=== PATIENT | male | born 1950 | race Caucasian/White ===

== ENCOUNTER → 2020-02-01 11:12 | Outpatient (BNVA) | payer MEDICARE, SELFPAY | PROVIDERS: PCP Internal Medicine; Visit Provider Urology | DX: Z76.89 Persons encountering health services in other specified circumstances (principal) | CPT/HCPCS: 99202 ==

== ENCOUNTER → 2020-02-29 10:55 | Outpatient (BNVA) | payer MEDICARE, SELFPAY | PROVIDERS: PCP Internal Medicine; Visit Provider Urology | DX: N39.0 Urinary tract infection, site not specified (principal) | CPT/HCPCS: 81002; 99212 ==

== ENCOUNTER 2020-07-30 15:36 | Outpatient (REF) | payer MEDICARE, SELFPAY ==
[2020-07-30 16:51] LABS: Glucose Urine UA NEG (NEG); Leukocyte Esterase Urine TRACE (NEG); Nitrite Urine NEG (NEG); Specific Gravity - Urine 1.015 (1.005-1.025); Urine Blood TRACE (NEG); Urine Ketones NEG (NEG); Urine Protein NEG (NEG-TRACE)
[2020-07-30 16:52] LABS: Appearance Urine CLEAR; Color Urine YELLOW
[2020-07-30 17:08] LABS: RBC Urine 0-2 /HPF (0); WBC Urine 0-2 /HPF (0-4)
== END 2020-07-30 15:37 | disposition home or self-care (01) ==
LOC: HO.LAB 15:36
PROVIDERS: PCP Internal Medicine; Visit Provider Urology
DX: N39.0 Urinary tract infection, site not specified (principal)
CPT/HCPCS: 81001; 87086

== ENCOUNTER → 2020-08-29 10:20 | Outpatient (BNVA) | payer MEDICARE, SELFPAY | PROVIDERS: PCP Internal Medicine; Visit Provider Urology | DX: N40.1 Benign prostatic hyperplasia with lower urinary tract symptoms (principal); R39.12 Poor urinary stream; N13.8 Other obstructive and reflux uropathy; R31.0 Gross hematuria | CPT/HCPCS: 51798; 99212 ==

== ENCOUNTER → 2020-10-04 13:58 | Outpatient (BNVA) | payer MEDICARE, SELFPAY | PROVIDERS: PCP Internal Medicine; Visit Provider Urology | DX: N40.1 Benign prostatic hyperplasia with lower urinary tract symptoms (principal); N13.8 Other obstructive and reflux uropathy; N39.0 Urinary tract infection, site not specified | CPT/HCPCS: 52000; 99212 ==

== ENCOUNTER 2020-11-25 10:06 | Day surgery (SDC) | payer MEDICARE, SELFPAY ==
[2020-11-15 13:58] VITALS: BMI 26.2
[2020-11-25] VITALS (8 sets, daily range): BP systolic 102–150; BP diastolic 54–84; PULSE 63–80; RESP 12–18; TEMP 36.2–37; O2SAT 95–99
--- NOTE | 2020-11-25 10:41 | HO.ANESPROP2 ---
[facility] Active Problems Active Problems: All Active Problems (Updated 11/15/20 @ 13:41 by Fiorella Prabhakar) BPH w urinary obs/LUTS (Acute) Weak urinary stream (Acute) Complicated urinary tract infection (Acute) Gross hematuria (Acute) Past Medical History Medical History Arthritis Back pain BPH loc w urin obs/LUTS COVID-19 vaccine series completed Elevated cholesterol GERD (gastroesophageal reflux disease) HTN (hypertension) Weak urinary stream Functional capacity: independent ambulation Family History Family history of problems with anesthesia: No Surgical History Surgical History History of right inguinal hernia repair History of Problems with Anesthesia: No Social History Social History Are you a primary healthcare technician to a significant other at home: No Do you presently have visiting nurse or other home services: No Patient Tobacco Use Status: Never used Tobacco Second Hand Smoke Exposure: No Use of substances other than those prescribed or required for medical reasons: No Have you been hit, kicked, punched, or otherwise hurt by someone within the past year? If so, by whom?: No Are you DNR?: No Advance Directives: No Advance Directives Information Provided: No Advance Directives on File: No Recently lost weight without trying: No Eating poorly because of decreased appetite: No Nutrition Risks: No Nutritional Risk Meds Allergies Allergy/AdvReac Type Severity Reaction Status Date / Time No Known Allergies Allergy Verified 11/15/20 13:41 Active Medications: Current Medications Generic Name Dose Route Start Last Admin Trade Name Raciel PRN Reason Stop Dose Admin Lactated Ringer's 1,000 mls @ 50 mls/hr 11/25/20 11:00 Lr IVCONT .Q20H [facility] Home Medications Medication Instructions Recorded Confirmed Last Taken Type atorvastatin 20 mg tablet 20 mg PO DAILY 02/01/20 11/15/20 Unknown History coenzyme Q10 100 mg capsule 200 mg PO DAILY 02/01/20 11/15/20 Unknown History (CoQ-10) echinacea 500 mg capsule 500 mg PO BID 02/01/20 11/15/20 Unknown History lactobacillus combination no.9 4 4,000 mmu cells PO DAILY 02/01/20 11/15/20 Unknown History billion cell capsule (Adult 50 Plus Probiotic) lisinopril 10 mg tablet 10 mg PO DAILY 02/01/20 11/15/20 Unknown History loratadine 10 mg tablet (Claritin) 10 mg PO DAILY 02/01/20 11/15/20 Unknown History multivitamin with minerals (Jayme 1 tab PO DAILY 02/01/20 11/15/20 Unknown History Multiple/Chelated Mineral) omega-3 fatty acids 1,000 mg 1,000 mg PO DAILY 02/01/20 11/15/20 Unknown History capsule (Fish Oil Concentrate) omeprazole 20 mg capsule,delayed 20 mg PO DAILY 02/01/20 11/15/20 11/25/20 History release aspirin 81 mg tablet,delayed 81 mg PO DAILY 11/15/20 11/15/20 11/18/20 History release ibuprofen 200 mg capsule (Motrin 400 mg PO Q8H PRN 11/15/20 11/15/20 Unknown History IB) Exam Exam Date and Time: November 25, 2020 1041 Height,Weight and Vital Signs: Height 5 ft 9 in Weight 80.739 kg Last Vital Signs Temp 98.6 F 11/25/20 10:16 Pulse 79 11/25/20 10:16 Resp 18 11/25/20 10:16 BP 150/77 H 11/25/20 10:16 Pulse Ox 98 11/25/20 10:16 Airway TM Dist: >3cm Neck ROM: Full Heart: RRR Lungs: CTA Assessment and Plan Final Anesthetic Review Family History of Problems with Anesthesia: No History of Problems with Anesthesia: No
[2020-11-25] MEDS: Lactated Ringers 1,000 ML 50 ML IVCONT (10:46)
--- NOTE | 2020-11-25 11:56 | MHC.SHP ---
Pre-Procedural Eval Section A Date of Service: 11/25/20 Section B Chief Complaint: prostatic hyperplasia Details of Present Illness: bph Relevant Family History (Specify if Yes): No Present Medications: see Short Stay Collaborative assessment Medical History: No relevant PMH History of Previous Operations: No relevant previous surgery Allergies: Allergies Allergy/AdvReac Type Severity Reaction Status Date / Time No Known Allergies Allergy Verified 11/15/20 13:41 Review of Systems Sugical H&P ROS: Negative: Constitution, Cardiovascular, Respiratory, Neurological, Psychiatric, Hem-Onc, Allergic/Immunologic, Gastrointestinal, Genitourinary, Musculoskeletal, Integumentary, Endocrine and Eyes/Ears/Nose/Throat Exam Surgical H&P Exam: Normal: HEENT, Normal: Heart, Normal: Lungs, Normal: Extremities, Normal: Abdomen, Normal: Skin and Normal: Neurological Plan Diagnosis/Plan: Unchanged (green light laser prostatectomy) I have reviewed the history and physical and performed a pertinent physical examination on my patient. No changes have occurred unless specified.
[2020-11-25] MEDS: levoFLOXacin/D5W 500 MG/100 ML PIGGYBACK 100 MG IV (11:59)
--- NOTE | 2020-11-25 13:17 | P.OP_ITS ---
Operative Note Operative Note Date of Service: 11/25/20 Narrative: PreOperative Diagnosis: Bladder outlet obstruction Post Operative Diagnosis: Bladder outlet obstruction Procedure: GreenLight laser enucleation of the prostate Surgeon: Dr Jf Mercedes Anesthesia: General Indications for procedure: History of bladder outlet obstruction. Treated with alpha-fco and other medications. Still with symptoms. On cystoscopy in office has prostate polyp and mucus. Recommendation for prostate procedure with laser enucleation of prostate. It has been discussed. Focus was placed on development of retrograde examination which is a normal part of this procedure. Procedure: After informed consent was verified the patient was brought to the operating room and placed in a supine position. Anesthesia was administered per protocol. Patient was placed in modified dorsal lithotomy position and prepped and draped in a sterile fashion. Safety pause time-out was confirmed. Antibiotics have been given. Twenty-four [place] laser cystoscope was inserted per urethra. No abnormalities found the anterior posterior urethra. The bladder was filled on both ureteric orifices were seen in normal position away from our area of interest. Mucous prominent at the Alek. Small calcifications running in mucus along prostate grooves. Appearance consistent with chronic inflammation. Using a GreenLight laser settings of 80 w incisions were made at the 5 and 7 o'clock position. They were taken down and then laterally on each side. They were brought from the bladder neck down to the level of the veru. These defined the lateral aspects of the median lobe area. The median lobe was ablated and enucleated tissue removed. Particularly on the right-hand side of the median lobe mucus was expressed from tissue. This was part of the prostate specimen that is sent for analysis. Bladder itself was normal. Once the median lobe area had been cleaned attention was directed to the lateral lobes. We started with the patient's left lateral lobe. Firstly the 05:00 o'clock groove was further developed. This was moved in the lateral position to undermine the tissue on the lateral side. Focus was then placed on the laser at the 1 o'clock position in developing a secondary groove down to the level of bladder fibers. The intervening tissue between these 2 grooves was removed with a combination of enucleation ablation working from the apex toward the bladder neck. A similar procedure was repeated on the patient's right-hand side. When this was completed debris and pieces of prostate removed from the bladder. Both ureteric orifices were reviewed again in shown to be patent in away from any areas of energy damage. The apical area was reviewed in any stray ooze was controlled. A 22 [place] 30 cc balloon Torres catheter was placed over stylet into the bladder. Clear efflux was obtained. 30 cc was placed in the balloon and gentle traction was placed. A snap was used to hold tension once the patient will be moved and transported. Once transportation its finish this novel be removed. A belladonna and opiate suppository was placed for postprocedure pain management. He tolerated procedure well was extubated in the operating and transferred in a stable condition to the recovery area. Eighty-six thousand kilojoules Prostate examination at completion of the procedure showed marked bogginess. This is again consistent with chronic inflammation of prostate and the mucinous material that was expressed from the prostate tissue through the procedure. Pathology: Prostate tissue Drains: Torres catheter
[2020-11-25] MEDS: Acetaminophen 325 MG TABLET 650 MG PO (14:37)
[2020-11-25] MEDS: oxyCODONE HCl Immed Release 5 MG TABLET PO (14:38)
--- NOTE | 2021-01-30 13:31 | W.PM.OPN ---
Operative Note Operative Note Date of Service: 11/25/20 Narrative: PreOperative Diagnosis: Bladder outlet obstruction Post Operative Diagnosis: Bladder outlet obstruction Procedure: GreenLight laser enucleation of the prostate Surgeon: Dr Jf Mercedes Anesthesia: General Indications for procedure: History of bladder outlet obstruction. Treated with alpha-fco and other medications. Still with symptoms. On cystoscopy in office has trilobar hypertrophy with mucus from lateral lobes prostate. Recommendation for GreenLight laser prostate procedure. Risks and benefits including infection, urinary incontinence were discussed. Retrograde ejaculation was stressed. Procedure: After informed consent was verified the patient was brought to the operating room and placed in a supine position. Anesthesia was administered per protocol. Patient was placed in modified dorsal lithotomy position and prepped and draped in a sterile fashion. Safety pause time-out was confirmed. Antibiotics have been given. Twenty-four [place] laser cystoscope was inserted per urethra. No abnormalities found the anterior posterior urethra. The bladder was filled on both ureteric orifices were seen in normal position away from our area of interest. Using a GreenLight laser settings of 80 w incisions were made at the 5 and 7 o'clock position. They were taken down and then laterally on each side. They were brought from the bladder neck down to the level of the veru. These defined the lateral aspects of the median lobe area. The median lobe was ablated and enucleated tissue removed. Once the median lobe area had been cleaned attention was directed to the lateral lobes. We started with the patient's left lateral lobe. Firstly the 05:00 o'clock groove was further developed. This was moved in the lateral position to undermine the tissue on the lateral side. Focus was then placed on the laser at the 1 o'clock position in developing a secondary groove down to the level of bladder fibers. The intervening tissue between these 2 grooves was removed with a combination of enucleation ablation working from the apex toward the bladder neck. A similar procedure was repeated on the patient's right-hand side. Of note during the laser procedure there was a large amount of mucus that was released from the lateral lobes during the laser ablation. Mucous appeared to be coming from with central component of the prostate. When this was completed debris and pieces of prostate removed from the bladder. Both ureteric orifices were reviewed again in shown to be patent in away from any areas of energy damage. The apical area was reviewed in any stray ooze was controlled. A 22 [place] 30 cc balloon Torres catheter was placed over stylet into the bladder. Clear efflux was obtained. 30 cc was placed in the balloon and gentle traction was placed. A snap was used to hold tension once the patient will be moved and transported. Once transportation its finish this novel be removed. A belladonna and opiate suppository was placed for postprocedure pain management. He tolerated procedure well was extubated in the operating and transferred in a stable condition to the recovery area. Total energy used 125 kilojoules Pathology: Prostate tissue Drains: Torres catheter
== END 2020-11-25 13:35 | disposition home or self-care (01) ==
PROVIDERS: PCP Internal Medicine; Visit Provider Urology
PROC: (CPT 52648; principal; 2020-11-25 12:00)
DX: D29.1 Benign neoplasm of prostate (principal); N42.32 Atypical small acinar proliferation of prostate; N13.8 Other obstructive and reflux uropathy
CPT/HCPCS: 52649; 88305; 88341; 88342; 88344; J1100; J1956; J2250; J2405; J3010

== ENCOUNTER → 2020-11-28 12:41 | Outpatient (BNVA) | payer MEDICARE, SELFPAY | PROVIDERS: Visit Provider Urology | DX: N40.1 Benign prostatic hyperplasia with lower urinary tract symptoms (principal); N13.8 Other obstructive and reflux uropathy; N39.0 Urinary tract infection, site not specified; I10 Essential (primary) hypertension; Z46.6 Encounter for fitting and adjustment of urinary device | CPT/HCPCS: 51700; 51798; 99212 ==

== ENCOUNTER 2020-12-09 13:53 | Outpatient (REF) | payer MEDICARE, SELFPAY ==
[2020-12-09 14:54] LABS: Blood Urea Nitrogen 21 mg/dL (9-16); Estimated Glomerular Filt Rate > 60
== END 2020-12-09 13:54 | disposition home or self-care (01) ==
LOC: HO.LAB 13:53
PROVIDERS: PCP Physician Assistant Medical; Visit Provider Urology
DX: R39.15 Urgency of urination (principal)
CPT/HCPCS: 36415; 82565; 84520

== ENCOUNTER 2020-12-20 10:54 | Outpatient (REF) | payer MEDICARE, SELFPAY ==
--- NOTE | ~2020-12-20 | CT_ITS ---
EXAMINATION: CT ABDOMEN AND PELVIS WITHOUT AND WITH CONTRAST CLINICAL INFORMATION: Malignant neoplasm of the bladder COMPARISON: None TECHNIQUE: Multidetector volumetric imaging was performed of the abdomen and pelvis before and after the IV administration of 85 mL of Omnipaque 300 intravenous contrast. Sagittal and coronal reformatted images were obtained on the technologist's workstation. This CT examination was performed using dose optimization techniques as appropriate, variously including the following: *Automated exposure control *Adjustment of mA and/or kV according to patient size (this includes techniques or standardized protocols for targeted exams where dose is matched to indication/reason for exam; i.e. extremities or head) *Use of iterative reconstruction technique DLP: 660 mGy-cm FINDINGS: LUNG BASES: The visualized lung bases are unremarkable. LIVER, GALLBLADDER, AND BILIARY TREE: The liver is normal in size, shape, and attenuation. No focal hepatic lesion or biliary ductal dilatation is present. There is a 1 mm hyperdensity along the wall the fundus of the gallbladder image 24/94 and 25/228 which may represent a tiny gallstone or calcified polyp. PANCREAS: No pancreatic mass or peripancreatic inflammatory changes. There are pancreatic calcifications suggesting sequelae of chronic pancreatitis. SPLEEN: Unremarkable ADRENAL GLANDS: Unremarkable KIDNEYS AND URETERS: Numerous left renal calculi are seen including an 8 mm left upper pole calculus, a 7 mm calculus in the left mid kidney and a cluster of several left lower pole calculi the largest 10 mm in diameter. Stone to skin distance approximately 8-9 cm. No hydronephrosis. A few small right renal calculi are seen including a 2 mm right mid-upper renal calculus and a punctate 1 mm right lower pole calculus. No hydronephrosis. Symmetric bilateral enhancement. No solid renal mass. No hydroureter. BLADDER: There is mild bladder wall irregularity but no discrete focal mass seen. No calculi are present. GASTROINTESTINAL TRACT: The stomach and small bowel are nondilated. Normal appendix. Tortuous colon with diverticulosis but no evidence of colitis or diverticulitis. There is wall thickening of the sigmoid colon most likely due to muscular hypertrophy with no pericolonic fluid or fat stranding. ABDOMINAL WALL: Fat-containing left inguinal hernia. There is a fat-containing umbilical hernia. LYMPH NODES: No retroperitoneal or iliac lymphadenopathy. VASCULAR: Normal caliber aorta. The IVC enhances normally. PELVIC VISCERA: There is a TURP defect in the prostate. Extensive prostatic calcifications are present. OSSEOUS STRUCTURES: Multilevel degenerative changes. 9 x 11 mm sclerotic lesion in the right aspect of L2 with serrated margins, favoring a bone island over sclerotic malignancy. CT/CT abdomen pelvis wo/w con IMPRESSION: 9 x 11 mm sclerotic lesion in L2 with serrated margins, favoring a bone island over a sclerotic metastasis. If there is high clinical concern, a bone scan or MRI could be obtained. There is subtle bladder wall irregularity but no focal mass seen. Consider correlation with cystoscopy as clinically indicated. There is a TURP defect in the bladder. No retroperitoneal or pelvic lymphadenopathy.
[2020-12-20] MEDS: iohexoL 350 MG/ML 100 ML INFUS..BTL IV (12:13)
== END 2020-12-20 10:55 | disposition home or self-care (01) ==
LOC: HO.CT 10:54
PROVIDERS: Visit Provider Urology
DX: C67.9 Malignant neoplasm of bladder, unspecified (principal)
CPT/HCPCS: 74178; Q9967

== ENCOUNTER → 2020-12-26 15:04 | Outpatient (BNVA) | payer MEDICARE, SELFPAY | PROVIDERS: PCP Physician Assistant Medical; Visit Provider Urology | DX: C67.9 Malignant neoplasm of bladder, unspecified (principal) | CPT/HCPCS: Q3014 ==

== ENCOUNTER 2021-01-30 11:41 | Outpatient (REF) | payer MEDICARE, SELFPAY ==
[2021-01-30 16:43] LABS: Urine Cytology See Pathology rpt
== END 2021-01-30 11:42 | disposition home or self-care (01) ==
LOC: HO.LAB 11:41
PROVIDERS: PCP Physician Assistant Medical; Visit Provider Urology
DX: C67.9 Malignant neoplasm of bladder, unspecified (principal)
CPT/HCPCS: 51798; 88112; 99212

== ENCOUNTER 2021-02-18 11:46 | Day surgery (SDC) | payer MEDICARE, SELFPAY ==
[2021-02-11 13:26] VITALS: BMI 26.2
--- NOTE | 2021-02-17 12:50 | HO.ANESPROP2 ---
Documented by User: Marlen Sanchez NP 02/17/21 12:51 HPI - Anesthesia Eval Consult details Narrative: 70yo M for Colonoscopy PMFSH Active Problems Active Problems: All Active Problems (Updated 02/11/21 @ 13:25 by Marilou Romero RN) BPH w urinary obs/LUTS (Acute) Weak urinary stream (Acute) Complicated urinary tract infection (Acute) Gross hematuria (Acute) Bladder cancer (Acute) Past Medical History Medical History (Updated 02/11/21 @ 13:25 by Marilou Romero RN) Arthritis Back pain Bladder cancer BPH loc w urin obs/LUTS COVID-19 vaccine series completed Elevated cholesterol GERD (gastroesophageal reflux disease) HTN (hypertension) Weak urinary stream Family History Family history of problems with anesthesia: No Surgical History Surgical History (Updated 02/11/21 @ 13:25 by Marilou Romero RN) H/O colonoscopy History of prostate surgery History of right inguinal hernia repair History of Problems with Anesthesia: No Social History Social History Are you a primary certified caregiver to a significant other at home: No Do you presently have visiting nurse or other home services: No Patient Tobacco Use Status: Never used Tobacco Second Hand Smoke Exposure: No Use of substances other than those prescribed or required for medical reasons: No Have you been hit, kicked, punched, or otherwise hurt by someone within the past year? If so, by whom?: No Are you DNR?: No Advance Directives: No Advance Directives Information Provided: Yes (informational brochure mailed) Advance Directives on File: No Recently lost weight without trying: No Eating poorly because of decreased appetite: No Nutrition Risks: No Nutritional Risk Poor oral hygiene: No Meds Allergies Allergy/AdvReac Type Severity Reaction Status Date / Time No Known Allergies Allergy Verified 01/30/21 12:18 Home Medications Medication Instructions Recorded Confirmed Last Taken Type atorvastatin 20 mg tablet 20 mg PO DAILY 02/01/20 02/11/21 Unknown History coenzyme Q10 100 mg capsule 200 mg PO DAILY 02/01/20 02/11/21 Unknown History (CoQ-10) echinacea 500 mg capsule 500 mg PO BID 02/01/20 02/11/21 Unknown History lactobacillus combination no.9 4 4,000 mmu cells PO DAILY 02/01/20 02/11/21 Unknown History billion cell capsule (Adult 50 Plus Probiotic) lisinopril 10 mg tablet 10 mg PO DAILY 02/01/20 02/11/21 Unknown History loratadine 10 mg tablet (Claritin) 10 mg PO DAILY 02/01/20 02/11/21 Unknown History multivitamin with minerals (Jayme 1 tab PO DAILY 02/01/20 02/11/21 Unknown History Multiple/Chelated Mineral) omega-3 fatty acids 1,000 mg 1,000 mg PO DAILY 02/01/20 02/11/21 Unknown History capsule (Fish Oil Concentrate) omeprazole 20 mg capsule,delayed 20 mg PO DAILY 02/01/20 02/11/21 02/18/21 History release aspirin 81 mg tablet,delayed 81 mg PO DAILY 11/15/20 02/11/21 11/18/20 History release ibuprofen 200 mg capsule (Motrin 400 mg PO Q8H PRN 11/15/20 02/11/21 Unknown History IB) Exam Exam Date and Time: February 17, 2021 1250 Height,Weight and Vital Signs: Height 5 ft 9 in Weight 80.739 kg Pertinent Lab Results Pertinent Lab Results: Laboratory Tests 12/09/20 14:05 BUN 21 H Creatinine 1.04 Assessment and Plan Assessment Anesthesia Assessment: Chart Reviewed Final Anesthetic Review Family History of Problems with Anesthesia: No History of Problems with Anesthesia: No Documented by User: Kellen Andrade MD 02/18/21 12:23 PMFSH Past Medical History Medical History (Updated 02/11/21 @ 13:25 by Marilou Romero RN) Arthritis Back pain Bladder cancer BPH loc w urin obs/LUTS COVID-19 vaccine series completed Elevated cholesterol GERD (gastroesophageal reflux disease) HTN (hypertension) Weak urinary stream Surgical History Surgical History (Updated 02/11/21 @ 13:25 by Marilou Romero RN) H/O colonoscopy History of prostate surgery History of right inguinal hernia repair Social History Social History Are you a primary certified caregiver to a significant other at home: No Do you presently have visiting nurse or other home services: No Patient Tobacco Use Status: Never used Tobacco Second Hand Smoke Exposure: No Use of substances other than those prescribed or required for medical reasons: No Have you been hit, kicked, punched, or otherwise hurt by someone within the past year? If so, by whom?: No Are you DNR?: No Advance Directives: No Advance Directives Information Provided: Yes (informational brochure mailed) Advance Directives on File: No Recently lost weight without trying: No Eating poorly because of decreased appetite: No Nutrition Risks: No Nutritional Risk Poor oral hygiene: No Meds Allergies Allergy/AdvReac Type Severity Reaction Status Date / Time No Known Allergies Allergy Verified 01/30/21 12:18 Home Medications Medication Instructions Recorded Confirmed Last Taken Type atorvastatin 20 mg tablet 20 mg PO DAILY 02/01/20 02/11/21 Unknown History coenzyme Q10 100 mg capsule 200 mg PO DAILY 02/01/20 02/11/21 Unknown History (CoQ-10) echinacea 500 mg capsule 500 mg PO BID 02/01/20 02/11/21 Unknown History lactobacillus combination no.9 4 4,000 mmu cells PO DAILY 02/01/20 02/11/21 Unknown History billion cell capsule (Adult 50 Plus Probiotic) lisinopril 10 mg tablet 10 mg PO DAILY 02/01/20 02/11/21 Unknown History loratadine 10 mg tablet (Claritin) 10 mg PO DAILY 02/01/20 02/11/21 Unknown History multivitamin with minerals (Jayme 1 tab PO DAILY 02/01/20 02/11/21 Unknown History Multiple/Chelated Mineral) omega-3 fatty acids 1,000 mg 1,000 mg PO DAILY 02/01/20 02/11/21 Unknown History capsule (Fish Oil Concentrate) omeprazole 20 mg capsule,delayed 20 mg PO DAILY 02/01/20 02/11/21 02/18/21 History release aspirin 81 mg tablet,delayed 81 mg PO DAILY 11/15/20 02/11/21 11/18/20 History release ibuprofen 200 mg capsule (Motrin 400 mg PO Q8H PRN 11/15/20 02/11/21 Unknown History IB) Exam Airway Mallampati Class: II TM Dist: >3cm Neck ROM: Full Heart: RRR Lungs: CTA Assessment and Plan Final Anesthetic Review ASA Class: II Final Preanesthetic Review: No Changes in Pt Med Stat, Meds/Allgs Chart Reviewed and Consent Obtained/Reviewed Patient Risk: Low Procedure Risk: Low Anesthetic Plan Anesthetic Plan: MAC: Disposition: Standard PACU and Inp. Admit - ICU
[2021-02-18 11:57] VITALS: BP 146/88; PULSE 89; RESP 17; TEMP 36.6; O2SAT 99
[2021-02-18] MEDS: Lactated Ringers 1,000 ML 100 ML IVCONT (12:18)
--- NOTE | 2021-02-18 12:32 | MHC.SHP ---
Pre-Procedural Eval Section A Date of Service: 02/18/21 Section B Chief Complaint: Neoplasm of Bladder Details of Present Illness: Hx of bladder ca, surgeon wanted him to have colonoscopy before any further surgery for tract. He has no GI symptoms Relevant Family History (Specify if Yes): No Relevant Social History: None Present Medications: see Short Stay Collaborative assessment Medical History: Significant History (Arthritis Back pain Bladder cancer BPH loc w urin obs/LUTS COVID-19 vaccine series completed Elevated cholesterol GERD (gastroesophageal reflux disease) HTN (hypertension) Weak urinary stream) History of Previous Operations: Relevant previous surgery/procedure and date(s) (H/O colonoscopy History of prostate surgery History of right inguinal hernia repair) Allergies: Allergies Allergy/AdvReac Type Severity Reaction Status Date / Time No Known Allergies Allergy Verified 01/30/21 12:18 Review of Systems Sugical H&P ROS: Negative: Constitution, Cardiovascular, Respiratory, Neurological, Psychiatric, Hem-Onc, Allergic/Immunologic, Gastrointestinal, Genitourinary, Musculoskeletal, Integumentary, Endocrine and Eyes/Ears/Nose/Throat Exam Surgical H&P Exam: Normal: HEENT, Normal: Heart, Normal: Lungs, Normal: Extremities, Normal: Abdomen, Normal: Skin and Normal: Neurological Plan Diagnosis/Plan: Unchanged I have reviewed the history and physical and performed a pertinent physical examination on my patient. No changes have occurred unless specified. colonoscopy prior to srugery
--- NOTE | 2021-02-18 12:40 | P.BOP_ITS ---
Brief Operative Note Date of Service: 02/18/21 Pre-op diagnosis: hx of bladder ca Post-op diagnosis: same Procedure: see op note Surgeon: Quirino Marlow MD Anesthesia: MAC Was an Senior Linux Engineer used for this Procedure?: No Estimated blood loss (mL): 0 Condition: stable Disposition: PACU
--- NOTE | 2021-02-18 13:12 | P.OP_ITS ---
Operative Note Operative Note Date of Service: 02/18/21 Narrative: Operative Information Procedure Description: Colonoscopy COLONOSCOPY Instrument: Olympus variable stiffness adult scope 190L Colonoscopy Monitoring: Vital signs and clinical assessment, continuous EKG monitoring, Pulse oximetry, Carbon Dioxide monitoring and blood pressure monitoring were done throughout the procedure. Colon withdrawal time was 9 minutes. Procedure: The patient was placed in the left lateral decubitis position and pre-procedure medications were administered. After a digital rectal examination of the ano-rectum, the video colonoscope was inserted into the rectum and advanced through the colon to the cecum/TI. The colonoscope was slowly withdrawn in a retrograde panoramic fashion and the colon mucosa was carefully examined including a retroflexed view of the rectum. Findings and interventions are described below. Procedure Difficulty: easy Findings: Terminal Ileum-normal Cecum:normal Ascending Colon: normal Transverse Colon -normal Descending Colon:normal Sigmoid Colon: moderate severe diverticulosis Rectum: Retroflexion with small internal hemorrhoids, grade I Anorectum - normal Colon preparation: Chana Bowel Preparation Scale Right colon; 2 Transverse colon: 3 Left colon; 3 (0 = Unprepared colon segment with mucosa not seen due to solid stool that cannot be cleared. 1 = Portion of mucosa of the colon segment seen, but other areas of the colon segment not well seen due to staining, residual stool and/or opaque liquid. 2 = Minor amount of residual staining, small fragments of stool and/or opaque liquid, but mucosa of colon segment seen well. 3 = Entire mucosa of colon segment seen well with no residual staining, small fragments of stool or opaque liquid) Impression and Post Procedure Diagnosis: internal hemorrhoids diverticular disease Plan: High fiber diet leaflet Avoid straining at stool, epsom salts and sitz bath, anusol supps or cream Repeat Colonoscopy in 10 years if ehalth allows or earlier if clinically indicated Please forward report to Dr Christianson, urologist at [facility] Above findings were reviewed with the patient and relevant handouts were provided if indicated.
[2021-02-18 13:19] VITALS: BP 130/69; PULSE 87; RESP 18; TEMP 37.4; O2SAT 98
[2021-02-18 13:40] VITALS: BP 139/77; PULSE 79; RESP 16; TEMP 37.4; O2SAT 99
--- NOTE | 2021-02-18 14:48 | HO.POSTANES ---
Post Anesthesia Evaluation Post Anesthesia Evaluation Vital Signs: Vital Signs Temp Pulse Resp BP Pulse Ox 02/18/21 13:40 99.3 F 79 16 139/77 99 02/18/21 13:19 99.3 F 87 18 130/69 98 02/18/21 11:57 98 F 89 17 146/88 H 99 Anesthesia: Monitored Mental Status: Awake Pain Control: Satisfactory Nausea/Vomiting: None Hydration: Adequate Anesthesia-Related Issues: No Anes. Related Issues
== END 2021-02-18 14:24 | disposition home or self-care (01) ==
PROVIDERS: PCP Physician Assistant Medical; Visit Provider Internal Medicine Gastroenterology
PROC: 0DJD8ZZ Inspection of Lower Intestinal Tract, Via Natural or Artificial Opening Endoscopic (ICD-10-PCS; CPT 45378; principal; 2021-02-18 13:00)
DX: C67.9 Malignant neoplasm of bladder, unspecified (principal); K57.30 Diverticulosis of large intestine without perforation or abscess without bleeding; K64.0 First degree hemorrhoids; N40.1 Benign prostatic hyperplasia with lower urinary tract symptoms; R39.12 Poor urinary stream; I10 Essential (primary) hypertension; Z79.899 Other long term (current) drug therapy; Z79.82 Long term (current) use of aspirin
CPT/HCPCS: 45378

== ENCOUNTER → 2021-03-21 09:13 | Outpatient (BNVA) | payer MEDICARE, SELFPAY | PROVIDERS: PCP Physician Assistant Medical; Visit Provider Urology | DX: C67.9 Malignant neoplasm of bladder, unspecified (principal) | CPT/HCPCS: 99212 ==

== ENCOUNTER 2021-03-23 08:48 | Emergency (ER) | payer MEDICARE, SELFPAY ==
[2021-03-23 08:56] VITALS: BP 153/99; BP 170/100; PULSE 100; PULSE 103; RESP 16; TEMP 36.1; O2SAT 100; O2SAT 99; BMI 25.8
--- NOTE | 2021-03-23 09:09 | ED.MALEGU ---
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 Mercedes, hx BPH and hx UTI who presents to the ER from home via EMS with urinary retention. He was discharged from [facility] on 03/19 after the procedure with a Torres catheter in place. This was removed in Dr. Mercedes's office 2 days later on 03/21. He was urinary normally yesterday as he increased his PO fluids. He had no pain with urinary stream, no blood in his urine on or difficulty emptying his bladder. This morning he woke up and was unable to void at all. He had significant pain and distention of his bladder. He was going to drive to the emergency room he was in such severe pain and he had to call an ambulance. He has no nausea, vomiting, fever. He did have chills last night. He just completed antibiotics after the procedure, sounds like he was prescribed Bactrim. MD Complaint: other (Urinary retention) Onset (ago): hour(s) Duration: constant Location: abdomen Severity: severe Severity scale (1-10): 10 Quality: aching Relieving factors: urination Exacerbating factors: palpation and movement Context: recent surgery and indwelling catheter Associated symptoms: Reports denies other symptoms Related Data Sexually active: No Home Medications Medication Instructions Recorded Confirmed atorvastatin 20 mg tablet 20 mg PO DAILY 02/01/20 02/11/21 coenzyme Q10 100 mg capsule 200 mg PO DAILY 02/01/20 02/11/21 (CoQ-10) echinacea 500 mg capsule 500 mg PO BID 02/01/20 02/11/21 lactobacillus combination no.9 4 4,000 mmu cells PO DAILY 02/01/20 02/11/21 billion cell capsule (Adult 50 Plus Probiotic) lisinopril 10 mg tablet 10 mg PO DAILY 02/01/20 02/11/21 loratadine 10 mg tablet (Claritin) 10 mg PO DAILY 02/01/20 02/11/21 multivitamin with minerals (Jayme 1 tab PO DAILY 02/01/20 02/11/21 Multiple/Chelated Mineral) omega-3 fatty acids 1,000 mg 1,000 mg PO DAILY 02/01/20 02/11/21 capsule (Fish Oil Concentrate) omeprazole 20 mg capsule,delayed 20 mg PO DAILY 02/01/20 02/11/21 release aspirin 81 mg tablet,delayed 81 mg PO DAILY 11/15/20 02/11/21 release ibuprofen 200 mg capsule (Motrin 400 mg PO Q8H PRN 11/15/20 02/11/21 IB) Previous Rx's Medication Instructions Recorded acetaminophen 300 mg-codeine 30 mg 1 tab PO Q6H PRN #10 tab 11/25/20 tablet finasteride 5 mg tablet 5 mg PO DAILY #90 tab 12/23/20 sulfamethoxazole 800 1 tab PO BID #6 tab 03/23/21 mg-trimethoprim 160 mg tablet (Bactrim DS) Allergies Allergy/AdvReac Type Severity Reaction Status Date / Time No Known Allergies Allergy Verified 03/21/21 09:17 Review of Systems Review of Systems: Constitutional: No Fever, No Chills ENT/Mouth: No sore throat, No Rhinorrhea, No Swallowing Difficulty Cardiovascular: No Chest Pain, No SOB, No Orthopnea, No Edema Respiratory: No Cough, No Sputum, No Wheezing, No dyspnea Gastrointestinal: No Nausea, No Vomiting, No Diarrhea, + abdominal Pain Genitourinary: No Dysuria, No Urinary Frequency, No Hematuria, Musculoskeletal: No joint pain, No Myalgias Skin: No Skin Lesions, No rash Neuro: No Weakness, No Numbness, No Dizziness, No Headache Psych: + Anxiety/Panic, No Depression Heme/Lymph: No Bruising, No Lymphadenopathy PMFSH Past Medical History Medical History Arthritis Back pain Bladder cancer BPH loc w urin obs/LUTS COVID-19 vaccine series completed Elevated cholesterol GERD (gastroesophageal reflux disease) HTN (hypertension) Weak urinary stream Surgical History H/O colonoscopy History of prostate surgery History of right inguinal hernia repair Social History Social History Are you a primary neurocritical care physician to a significant other at home: No Do you presently have visiting nurse or other home services: No Patient Tobacco Use Status: Never used Tobacco Second Hand Smoke Exposure: No Advance Directives: No Advance Directives Information Provided: Yes Physical Exam Vital Signs: Vital Signs: Last Vital Signs Temp 97 F 03/23/21 08:56 Pulse 103 H 03/23/21 08:56 Resp 16 03/23/21 08:56 BP 153/99 H 03/23/21 08:56 Pulse Ox 100 03/23/21 08:56 BMI result Body Mass Index 25.8 Appearance: Alert. Oriented X3. Uncomfortable. Eyes: Pupils equal, round and reactive to light. ENT: Pharynx normal. Neck: Normal inspection. Neck supple. CVS: Tachycardic, regular rhythm. Pulses normal. Respiratory: No respiratory distress. Breath sounds normal. Abdomen: Significantly distended, palpable bladder, tender. +BS x4 Skin: Skin warm and dry. Normal skin color. Normal skin turgor. No rashes. Extremities: No lower extremity edema. Neuro: Oriented X 3. Grossly normal, nonfocal Course Course Course Narrative: 70 y/o male presenting with urinary retention that started today, severe pain. Recent TURP, cysto and biopsy. On Bactrim. No N/V or fever but chills last night. Bladder scan for over a L, Torres was placed nontraumatic with over 800 cc drained immediately. Patient is feeling much better. Urinalysis sent for evaluation of possible infection. Reevaluation(s) Reevaluation #1: UA showing mild leukocyte esterase, 3+ blood. No other convincing signs of UTI. He just finished prophylactic Bactrim will continue for another 3 days until he can see Dr. Mercedes. Stable for d/c home with Torres. Instructions provided. MDM - Male Genitourinary Lab Data Labs: Lab Results 03/23/21 Range/Units 09:50 Urine Color STRAW Urine Appearance CLEAR Urine pH 7.0 (5.0-8.0) Ur Specific [place] 1.010 (1.005-1.025) Urine Protein TRACE (NEG-TRACE) MG/DL Urine Glucose (UA) NEG (NEG) MG/DL Urine Ketones NEG (NEG) MG/DL Urine Blood 3+ H (NEG) Urine Nitrite NEG (NEG) Ur Leukocyte Esterase TRACE H (NEG) Critical Care Time Critical Care Time Critical Care Time: No Discharge Plan Discharge Clinical Impression: Acute urinary retention Patient Disposition: Home, Self-Care Instructions: Urinary Retention in Men (ED), Torres Catheter Placement and Care (ED) Additional Instructions: Follow up with Dr. Mercedes this week. Recommend restarting your tamsolosin and continuing your finesteride Continue prescribed antibiotics for another 3 days If you develop new or worsening symptoms call 911 or come back to the ER for further evaluation. Prescriptions: New sulfamethoxazole-trimethoprim [Bactrim DS] 800-160 mg tablet 1 tab PO BID Qty: 6 RF: 0 No Action finasteride 5 mg tablet 5 mg PO DAILY Qty: 90 RF: 2 ibuprofen [Motrin IB] 200 mg Capsule 400 mg PO Q8H PRN (Reason: Pain) RF: 0 aspirin 81 mg Tablet,Delayed Release (Dr/Ec) 81 mg PO DAILY RF: 0 acetaminophen-codeine 300-30 mg tablet 1 tab PO Q6H PRN (Reason: pain) Qty: 10 RF: 0 omeprazole 20 mg capsule,delayed release(DR/EC) 20 mg PO DAILY RF: 0 lisinopril 10 mg tablet 10 mg PO DAILY RF: 0 atorvastatin 20 mg tablet 20 mg PO DAILY RF: 0 Adult 50 Plus Probiotic 4 billion cell capsule 4,000 mmu cells PO DAILY RF: 0 omega-3 fatty acids [Fish Oil Concentrate] 1,000 mg capsule 1,000 mg PO DAILY RF: 0 coenzyme Q10 [CoQ-10] 100 mg capsule 200 mg PO DAILY RF: 0 echinacea 500 mg capsule 500 mg PO BID RF: 0 multivitamin with minerals [Jayme Multiple/Chelated Mineral] Tablet 1 tab PO DAILY RF: 0 loratadine [Claritin] 10 mg tablet 10 mg PO DAILY RF: 0 Referrals: Jf Mercedes MD [Physician] - 2 days (urinary retention requiring Torres, s/p recent TURP, cysto and biopsy)
--- NOTE | 2021-03-23 09:20 | PC.NURSE ---
18FR HUNTER CATH PLACED WITH DIFFICULTY. OUTPUT >800ML WITH INITIAL PLACEMENT. NO VIDHI BLOOD NOTED. PROCEDURE WELL TOLERATED AND RELIEF POST PLACEMENT
[2021-03-23 09:56] LABS: Appearance Urine CLEAR; Color Urine STRAW; Glucose Urine UA NEG (NEG); Leukocyte Esterase Urine TRACE (NEG); Nitrite Urine NEG (NEG); UACC Culture Trigger YES; Urine Blood 3+ (NEG); Urine Ketones NEG (NEG); Urine Protein TRACE MG/DL (NEG-TRACE)
[2021-03-23 10:22] VITALS: BP 121/70; PULSE 88; RESP 18; O2SAT 95
[2021-03-23 11:59] LABS: WBC Urine 0-2 /HPF (0-4)
== END 2021-03-23 11:03 | disposition home or self-care (01) ==
PROVIDERS: Physician Assistant; Emergency Provider Emergency Medicine; PCP Physician Assistant Medical
DX: R33.9 Retention of urine, unspecified (principal); N40.1 Benign prostatic hyperplasia with lower urinary tract symptoms; Z85.51 Personal history of malignant neoplasm of bladder; I10 Essential (primary) hypertension; E78.5 Hyperlipidemia, unspecified; Z79.02 Long term (current) use of antithrombotics/antiplatelets; Z79.899 Other long term (current) drug therapy
CPT/HCPCS: 51702; 51798; 81001; 87086; 99284

== ENCOUNTER → 2021-03-26 10:57 | Outpatient (BNVA) | payer MEDICARE, SELFPAY | PROVIDERS: PCP Physician Assistant Medical; Visit Provider Urology | DX: Z46.6 Encounter for fitting and adjustment of urinary device (principal) | CPT/HCPCS: 99211 ==

== ENCOUNTER → 2022-03-12 12:51 | Outpatient (BNVA) | payer MEDICARE, SELFPAY | PROVIDERS: PCP Physician Assistant Medical; Visit Provider Urology | DX: C67.9 Malignant neoplasm of bladder, unspecified (principal) | CPT/HCPCS: 99212 ==

== ENCOUNTER 2022-04-21 08:53 | Outpatient (REF) | payer MEDICARE, SELFPAY ==
[2022-04-21 17:36] LABS: Urine Cytology See Pathology rpt
== END 2022-04-21 08:54 | disposition home or self-care (01) ==
LOC: HO.LAB 08:53
PROVIDERS: PCP Physician Assistant Medical; Visit Provider Urology
DX: C67.9 Malignant neoplasm of bladder, unspecified (principal)
CPT/HCPCS: 52000; 88112; 99212

== ENCOUNTER 2022-10-29 08:47 | Outpatient (AMB) | payer MEDICARE, SELFPAY ==
--- NOTE | 2022-10-29 08:57 | MHC.OFFVIS ---
Intake Intake Visit Reasons: 6 months cystoscopy Intake Note: Patient presents today for a CYSTOSCOPY Procedure: Meds: Tamsulosin Allergies to Antibiotic: None Blood Thinner: Aspirin Urinalysis test clear for Cysto Disposible Uro-G Cystoscope Cannula: Lot: [id number] Exp: 09/25/[address] Supervisor Required: No Accompanied by: Self / Same As Patient Allergies No Known Allergies Allergy (Verified 10/29/22 09:32) HPI HPI Comments History of Present Illness Details Jorge A is a pleasant male. He is a patient of Dr. Patel. 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 Radical prostatectomy Dr. Christianson [facility] 04/[address] Mercedes November 2020 Found in prostate tissue from laser prostate enucleation Agent Parmer exposure in [place] Pathologic diagnosis - mucinous carcinoma of bladder origin [facility] Dr. Marshall robotic prostatectomy Follow-up radiation with chemotherapy [facility] Dr Ndiaye - treatment complicated by episode of sepsis Lower urinary tract symptoms Marked improvement in symptoms after laser GreenLight prostatectomy Pathology showed mucinous neoplasm Current therapy - tamsulosin, finasteride Prostate procedure - November 2020 GreenLight laser PSA 10/30 1.1 Initial symptoms - incomplete bladder emptying, weakness of stream cystoscopy - September 2020 showed mucus with some degree of papillary change on large prostate PFSH Medical History Arthritis Back pain Bladder cancer BPH loc w urin obs/LUTS COVID-19 vaccine series completed Elevated cholesterol GERD (gastroesophageal reflux disease) HTN (hypertension) Weak urinary stream Surgical History H/O colonoscopy History of prostate surgery History of right inguinal hernia repair Social History Are you a primary pediatric acute care unit nurse to a significant other at home: No Do you presently have visiting nurse or other home services: No Alcohol intake: never Patient Tobacco Use Status: Never used Tobacco Second Hand Smoke Exposure: No Office Procedures Cystoscopy Consent Discussed risk and benefit or proposed procedure with the patient. Information consent for procedure given to the patient. Discussed technical aspects, risks, benefits and alternatives in full. Addressed all of the patient's questions and concerns regarding the procedure. The patient demonstrated knowledge and understanding. They wish to proceed with this procedure. Preparation The patient was prepped in the usual manner. A field services analyst was present and in the room. Genitalia was prepped with betadine solution in a sterile manner. Lidocaine Jelly 2% was placed into the urethra and 16Fr flexible Olympus cystoscope was inserted into the meatus after adequate lubrication. Procedure Meatus circumcised Urethra anterior posterior urethral Prostatic Urethra absent Bladder examination with retroflexion of cystoscope Bladder Orifices normal shape and position Bladder Capacity medium Trabeculations grade 1 Cellule Formation - Diverticulum Formation - Mucosal Erythema - Bladder Tumor - 74534-[id number] Procedure code (CPT) selection complete Results AMB Urinalysis, Automated UA Leukoctes 0 Davy/uL Last Edit by [employer] on 10/29/22 09:15 UA Nitrite Last Edit by [employer] on 10/29/22 09:15 UA Urobilinogen 0.2 mg/dL Last Edit by [employer] on 10/29/22 09:15 UA Protein 15 mg/dL Last Edit by [employer] on 10/29/22 09:15 UA pH 5.5 Last Edit by [employer] on 10/29/22 09:15 UA Blood 0 Jarad/uL Last Edit by [employer] on 10/29/22 09:15 UA Specific [place] 1.025 Last Edit by [employer] on 10/29/22 09:15 UA Ketone Negative Last Edit by [employer] on 10/29/22 09:15 UA Bilirubin 0 mg/dL Last Edit by [employer] on 10/29/22 09:15 UA Glucose 0 mg/dL Last Edit by [employer] on 10/29/22 09:15 Results Reviewed Results Reviewed: Laboratory Last Values Urine pH (Auto) 5.5 10/29/22 09:06 Specific [place] (Auto) 1.025 10/29/22 09:06 Urine Protein (Auto) 15 mg/dL 10/29/22 09:06 Glucose (UA)(Auto) 0 mg/dL 10/29/22 09:06 Urine Ketones (Auto) Negative 10/29/22 09:06 Urine Blood (Auto) 0 Jarad/uL 10/29/22 09:06 Urine Bilirubin (Auto) 0 mg/dL 10/29/22 09:06 Urine Urobilinogen (Auto) 0.2 mg/dL 10/29/22 09:06 Leukocyte Esterase (Auto) 0 Davy/uL 10/29/22 09:06 Assessment & Plan Assessment & Plan (1) Bladder cancer: Comment: Mucinous carcinoma within prostate Code(s): C67.9 - Malignant neoplasm of bladder, unspecified Plan Six month follow-up Orders: Orders AMB Urinalysis Automated Today Z13.9 - Encounter for screening, unspecified Patient Instructions: Imaging studies, laboratory and physical exam results were discussed and reviewed in detail. No major barriers to patient understanding were identified. An opportunity to ask questions regarding the treatment plan was provided. All questions were answered. The patient expressed understanding and agreement with the above treatment plan. The patient is aware they should contact our office by phone for worsening of their current condition or the appearance of new urologic symptoms. Compliance is encouraged with any medications and followup testing that is ordered. It is a privilege to participate in the urologic care of your patient. If you have any questions or concerns regarding treatment for the above conditions, or other urologic issues, please do not hesitate to contact me. The office telephone contact is [phone]. This note is constructed using voice recognition software. While every effort has been made to ensure accuracy staffing program manager errors may have been included. Yours sincerely, Dr Jf Mercedes MD, [facility] - Urology Providers of Expert, Compassionate Care for the Genitourinary System Coding Level of Care Code Est Pt Level 3 (38788) Diagnoses Bladder cancer C67.9 CPT Codes Cystoscopy - CPT: 12959-[id number] ([id number])
== END 2022-10-29 09:47 | disposition home or self-care (01) ==
PROVIDERS: Visit Provider Urology
DX: C67.8 Malignant neoplasm of overlapping sites of bladder (principal)
CPT/HCPCS: 52000

== ENCOUNTER → 2022-10-29 08:47 | Outpatient (BNVA) | payer MEDICARE, SELFPAY | PROVIDERS: Visit Provider Urology | DX: C67.9 Malignant neoplasm of bladder, unspecified (principal) | CPT/HCPCS: 52000 ==

== ENCOUNTER 2023-04-27 08:53 | Outpatient (REF) | payer MEDICARE, SELFPAY ==
[2023-04-27 16:36] LABS: Urine Cytology See Pathology rpt
== END 2023-04-27 08:54 | disposition home or self-care (01) ==
LOC: HO.LAB 08:53
PROVIDERS: PCP Physician Assistant Medical; Visit Provider Urology
DX: C67.9 Malignant neoplasm of bladder, unspecified (principal)
CPT/HCPCS: 52000; 81003; 88112; 99212

== ENCOUNTER 2023-04-27 08:53 | Outpatient (AMB) | payer MEDICARE, SELFPAY ==
--- NOTE | 2023-04-27 09:03 | A.OFFVIS_ITS ---
Intake Intake Visit Reasons: 6M Cystoscopy(Bladder Ca) Intake Note: Patient is Present for Cystoscopy Urology Med: None Antibiotic Allergy: None Blood Thinner: Aspirin URO- G Disposable Cystoscope lot: [id number] exp:08/23/2024 Patient states he is no longer taking both Finasteride and Tamsulosin. Urine will be sent for Cytology Allergies No Known Allergies Allergy (Verified 04/27/23 09:04) HPI HPI Comments History of Present Illness Details Jorge A is a pleasant male. He is a patient of Dr. Patel. 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 Radical prostatectomy Dr. Christianson [facility] 04/[address] Mercedes November 2020 Found in prostate tissue from laser prostate enucleation Agent [place] exposure in [place] Pathologic diagnosis - mucinous carcinoma of bladder origin [facility] Dr. Marshall robotic prostatectomy Follow-up radiation with chemotherapy [facility] Dr Ndiaye - treatment complicated by episode of sepsis - FOLFOX - 07/01 Medical Oncology - [facility] - Dr Herrera Cystoscopy - 05/04 NAD, 11/01 NAD Imaging - performed every 3 months through [facility] 03/04 - isiah diagnosis with node in [place] er. Biopsy confirmed mucinous carcinoma Lower urinary tract symptoms Marked improvement in symptoms after laser GreenLight prostatectomy Pathology showed mucinous neoplasm Current therapy - tamsulosin, finasteride Prostate procedure - November 2020 GreenLight laser PSA 10/30 1.1 Initial symptoms - incomplete bladder emptying, weakness of stream cystoscopy - September 2020 showed mucus with some degr ee of papillary change on large prostate PFSH Medical History Bladder cancer COVID-19 vaccine series completed Arthritis Back pain GERD (gastroesophageal reflux disease) Elevated cholesterol HTN (hypertension) BPH loc w urin obs/LUTS Weak urinary stream Surgical History H/O colonoscopy History of prostate surgery History of right inguinal hernia repair Social History Are you a primary managed care liaison to a significant other at home: No Do you presently have visiting nurse or other home services: No Alcohol intake: never Patient Tobacco Use Status: Never used Tobacco Second Hand Smoke Exposure: No Review of Systems Const Denies chills and Denies fever(s) Card Reports no additional complaints and Denies syncope Resp Denies cough GI Denies abdominal pain and Denies heartburn Reports as per HPI and Denies change in libido Neuro Denies syncope Psych Denies change in libido Endo Denies change in libido Physical Exam Const General: cooperative, healthy appearing, comfortable and no acute distress Orientation/consciousness: patient oriented x3 HEENT Face and sinus: Yes normal facial exam Mouth: moist mucous membranes Neck Neck: Yes normal visual inspection, Yes full ROM and Yes trachea midline Chest Chest palpation & inspection: normal inspection of the chest Resp Effort & Inspection: normal respiratory effort, able to speak in complete sentences and no respiratory distress GI Inspection: Yes normal to inspection Back/Spine/Pelvis Cervical Spine: normal cervical lordosis Thoracic/Lumbar Spine: thoracic and lumbar spine normal to inspection Skin General skin exam: no rashes or lesions noted Neuro General: patient oriented x3, gait normal, tone normal and moves all extremities Extrem General: Yes normal to inspection and Yes capillary refill normal Office Procedures Cystoscopy Consent Discussed risk and benefit or proposed procedure with the patient. Information consent for procedure given to the patient. Discussed technical aspects, risks, benefits and alternatives in full. Addressed all of the patient's questions and concerns regarding the procedure. The patient demonstrated knowledge and understanding. They wish to proceed with this procedure. Preparation The patient was prepped in the usual manner. A inclusion internship was present and in the room. Genitalia was prepped with betadine solution in a sterile manner. Lidocaine Jelly 2% was placed into the urethra and 16Fr flexible Olympus cystosc ope was inserted into the meatus after adequate lubrication. Procedure Meatus circumcised Urethra anterior and posterior urethra normal Prostatic Urethra absent Bladder examination with retroflexion of cystoscope Bladder Orifices normal shape and position Bladder Capacity medium Trabeculations minimal Cellule Formation - Diverticulum Formation - Mucosal Erythema trace blood vessel submucosal Bladder Tumor - [id number] DISPOSABLE SCOPE URO-G FLEXIBLE SCOPE Procedure code (CPT) selection complete Office Meds lidocaine HCl 2 % mucosal jelly in applicator Performing Provider: Jf Mercedes MD Performing Location: [facility] [place] [facility] Administered by: Sherita Moreno RN on 04/27/23 09:24 Dose Route Admin Location Dispensed Lot Number Expiration Date NDC Therapist 10 mL intra-urethral 10 mL nitrofurantoin monohydrate/macrocrystals 100 mg capsule Performing Provider: Jf Mercedes MD Performing Location: [facility] [place] [facility] Administered by: Sherita Moreno RN on 04/27/23 09:24 Dose Route Admin Location Dispensed Lot Number Expiration Date NDC Therapist 100 mg PO 1 cap naproxen 500 mg tablet Performing Provider: Jf Mercedes MD Performing Location: [facility] [place] [facility] Administered by: Sherita Moreno RN on 04/27/23 09:24 Dose Route Admin Location Dispensed Lot Number Expiration Date NDC Therapist 500 mg PO 1 tab Results AMB Urinalysis, Automated UA Leukoctes 0 Davy/uL Last Edit by Sue Dowling [facility] on 04/27/23 09:16 UA Nitrite Negative Last Edit by Sue Dowling [facility] on 04/27/23 09:16 UA Urobilinogen 0.2 mg/dL Last Edit by Sue Dowling [facility] on 04/27/23 09:1 6 UA Protein 15 mg/dL Last Edit by Sue Dowling [facility] on 04/27/23 09:16 UA pH 6.0 Last Edit by Sue Dowling [facility] on 04/27/23 09:16 UA Blood 0 Jarad/uL Last Edit by Sue Dowling [facility] on 04/27/23 09:16 UA Specific [place] 1.025 Last Edit by PRIYANKA Millan on 04/27/23 09: 16 UA Ketone Negative Last Edit by Sue Dowling [facility] on 04/27/23 09:16 UA Bilirubin 0 mg/dL Last Edit by Sue Dowling [facility] on 04/27/23 09:16 UA Glucose 0 mg/dL Last Edit by Sue Dowling [facility] on 04/27/23 09:16 Results Reviewed Results Reviewed: Laboratory Last Values Urine pH (Auto) 6.0 04/27/23 09:05 Specific [place] (Auto) 1.025 04/27/23 09:05 Urine Protein (Auto) 15 mg/dL 04/27/23 09:05 Glucose (UA)(Auto) 0 mg/dL 04/27/23 09:05 Urine Ketones (Auto) Negative 04/27/23 09:05 Urine Blood (Auto) 0 Jarad/uL 04/27/23 09:05 Urine Nitrite (Auto) Negative 04/27/23 09:05 Urine Bilirubin (Auto) 0 mg/dL 04/27/23 09:05 Urine Urobilinogen (Auto) 0.2 mg/dL 04/27/23 09:05 Leukocyte Esterase (Auto) 0 Davy/uL 04/27/23 09:05 Assessment & Plan Assessment & Plan (1) Bladder cancer: Comment: Mucinous carcinoma within prostate Code(s): C67.9 - Malignant neoplasm of bladder, unspecified Plan Six-month follow-up cystoscopy Orders: Orders Urine Cytology Today C67.9 - Malignant neoplasm of bladder, unspecified AMB Cystoscopy Today C67.9 - Malignant neoplasm of bladder, unspecified AMB Urinalysis Automated Today Z13.9 - Encounter for screening, unspecified Patient Instructions: Imaging studies, laboratory and physical exam results were discussed and reviewed in detail. No major barriers to patient understanding were identified. An opportunity to ask questions regarding the treatment plan was provided. All questions were answered. The patient expressed understanding and agreement with the above treatment plan. The patient is aware they should contact our office by phone for worsening of their current condition or the appearance of new urologic symptoms. Compliance is encouraged with any medications and followup testing that is ordered. It is a privilege to participate in the urologic care of your patient. If you have any questions or concerns regarding treatment for the above conditions, or other urologic issues, please do not hesitate to contact me. The office telephone contact is [phone]. This note is constructed using voice recognition software. While every effort has been made to ensure accuracy lead manufacturing technician errors may have been included. Yours sincerely, Dr Jf Mercedes MD, [facility] - Urology Providers of Expert, Compassionate Care for the Genitourinary System Coding Level of Care Code Est Pt Level 4 (21842) Diagnoses Bladder cancer C67.9 CPT Codes Cystoscopy - CPT: 19961-[id number] ([id number])
== END 2023-04-27 10:01 | disposition home or self-care (01) ==
PROVIDERS: PCP Physician Assistant Medical; Visit Provider Urology
DX: C67.9 Malignant neoplasm of bladder, unspecified (principal); Z13.9 Encounter for screening, unspecified
CPT/HCPCS: 52000; 99213

== ENCOUNTER 2023-10-28 09:06 | Outpatient (AMB) | payer MEDICARE, SELFPAY ==
--- NOTE | 2023-10-28 09:08 | A.OFFVIS_ITS ---
Intake Visit Reasons: 6M Cysto(Bladder Ca) Intake Note: Patient is present for 6M Cystoscopy Urology Medication:TAMSULOSIN,FINASTERIDE,ACETAMINOPHEN,LIDOCAINE Antibiotic Allergy:NONE Blood Thinner:ASPIRIN Lot:[id number] Exp:05/27/2026 Waiter/Waitress Tourist Class Required: No Allergies No Known Allergies Allergy (Verified 10/28/23 09:10) HPI Comments Details: Jorge A is a pleasant male. He is a patient of Dr. Mcneal. 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 Martin Cystoscopy Continue surveillance q.6 months Undergoing salvage chemotherapy Recent CT shows stable liver lesion. Not progressing Mucinous carcinoma of bladder origin within prostate. Radical prostatectomy Dr. Christianson [facility] 04/[address] Mercedes November 2020 Found in prostate tissue from laser prostate enucleation Agent [place] exposure in - 1968 Pathologic diagnosis - mucinous carcinoma of bladder origin [facility] Dr. Marshall robotic prostatectomy Follow-up radiation with chemotherapy [facility] Dr Ndiaye - treatment complicated by episode of sepsis - FOLFOX - 07/01 Medical Oncology - [facility] - Dr Herrera Cystoscopy - 05/04 NAD, 11/01 NAD, 05/05 NAD Imaging - performed every 3 months through [facility] 03/04 - isiah diagnosis with node in liver. Biopsy confirmed mucinous carcinoma - undergoing salvage therapy Lower urinary tract symptoms Marked improvement in symptoms after laser GreenLight prostatectomy Pathology showed mucinous neoplasm Current therapy - tamsulosin, finasteride Prostate procedure - November 2020 GreenLight laser PSA 10/30 1.1 Initial symptoms - incomplete bladder emptying, weakness of stream cystoscopy - September 2020 showed mucus with some degree of papillary change on large prostate PFSH Medical History Bladder cancer COVID-19 vaccine series completed Arthritis Back pain GERD (gastroesophageal reflux disease) Elevated cholesterol HTN (hypertension) BPH loc w urin obs/LUTS Weak urinary stream Surgical History H/O colonoscopy History of prostate surgery History of right inguinal hernia repair Social History Are you a primary post acute care nurse to a significant other at home: No Do you presently have visiting nurse or other home services: No Alcohol intake: never Patient Tobacco Use Status: Never used Tobacco Second Hand Smoke Exposure: No Review of Systems Const Denies chills and Denies fever(s) Card Reports no additional complaints and Denies syncope Resp Denies cough GI Denies abdominal pain and Denies heartburn Reports as per HPI and Denies change in libido Neuro Denies syncope Psych Denies change in libido Endo Denies change in libido Physical Exam Const General: cooperative, healthy appearing, comfortable and no acute distress Orientation/consciousness: patient oriented x3 HEENT Face and sinus: Yes normal facial exam Mouth: moist mucous membranes Neck Neck: Yes normal visual inspection, Yes full ROM and Yes trachea midline Chest Chest palpation & inspection: normal inspection of the chest Resp Effort & Inspection: normal respiratory effort, able to speak in complete sentences and no respiratory distress GI Inspection: Yes normal to inspection Back/Spine/Pelvis Cervical Spine: normal cervical lordosis Thoracic/Lumbar Spine: thoracic and lumbar spine normal to inspection Skin General skin exam: no rashes or lesions noted Neuro General: patient oriented x3, gait normal, tone normal and moves all extremities Extrem General: Yes normal to inspection and Yes capillary refill normal Office Procedures Cystoscopy Consent Discussed risk and benefit or proposed procedure with the patient. Information consent for procedure given to the patient. Discussed technical aspects, risks, benefits and alternatives in full. Addressed all of the patient's questions and concerns regarding the procedure. The patient demonstrated knowledge and understanding. They wish to proceed with this procedure. Preparation The patient was prepped in the usual manner. A event representative was present and in the room. Genitalia was prepped with betadine solution in a sterile manner. Lidocaine Jelly 2% was placed into the urethra and 16Fr flexible Olympus cystoscope was inserted into the meatus after adequate lubrication. Procedure Cystoscopy performed using a disposable Urovue digital 16 [place] cystoscope. Meatus circumcised Urethra anterior and posterior urethra normal Prostatic Urethra absent prostate Bladder examination with retroflexion of cystoscope Bladder Orifices normal shape and position Bladder Capacity normal Trabeculations grade 1 Cellule Formation - Diverticulum Formation - Mucosal Erythema - Bladder Tumor - [id number] DISPOSABLE SCOPE URO-G FLEXIBLE SCOPE Procedure code (CPT) selection complete Office Meds lidocaine HCl 2 % mucosal jelly in applicator Performing Provider: Jf Mercedes MD Performing Location: [facility] [place] [facility] Administered by: Vasquez Colon RN on 10/28/23 09:31 Dose Route Admin Location Dispensed Lot Number Expiration Date ND Apprentice Embalmer 10 mL intra-urethral 10 mL nitrofurantoin monohydrate/macrocrystals 100 mg capsule Performing Provider: Jf Mercedes MD Performing Location: [facility] [place] [facility] Administered by: Vasquez Colon RN on 10/28/23 09:31 Dose Route Admin Location Dispensed Lot Number Expiration Date NDC Apprentice Embalmer 100 mg PO 1 cap naproxen 500 mg tablet Performing Provider: Jf Mercedes MD Performing Location: [facility] [place] [facility] Administered by: Vasquez Colon RN on 10/28/23 09:31 Dose Route Admin Location Dispensed Lot Number Expiration Date NDC Apprentice Embalmer 500 mg PO 1 tab Results AMB Urinalysis, Automated UA Leukoctes 0 Davy/uL Last Edit by BRUNA Meza on 10/28/23 09:50 UA Nitrite Negative Last Edit by BRUNA Meza on 10/28/23 09:50 UA Urobilinogen 0.2 mg/dL Last Edit by BRUNA Meza on 10/28/23 09:5 0 UA Protein 30 mg/dL Last Edit by BRUNA Meza on 10/28/23 09:50 UA pH 5.5 Last Edit by BRUNA Meza on 10/28/23 09:50 UA Blood 0 Jarad/uL Last Edit by BRUNA Meza on 10/28/23 09:50 UA Specific [place] 1.025 Last Edit by BRUNA Meza on 10/28/23 09: 50 UA Ketone Positive Last Edit by BRUNA Meza on 10/28/23 09:50 UA Bilirubin 1 mg/dL Last Edit by BRUNA Meza on 10/28/23 09:50 UA Glucose 100 mg/dL Last Edit by BRUNA Meza on 10/28/23 09:50 Assessment & Plan Assessment & Plan (1) Bladder cancer: Comment: Mucinous carcinoma within prostate Code(s): C67.9 - Malignant neoplasm of bladder, unspecified Category: Medical (2) BPH w urinary obs/LUTS: Code(s): N40.1 - Benign prostatic hyperplasia with lower urinary tract symptoms; N13.8 - Other obstructive and reflux uropathy Category: Medical Plan Six-month follow-up check cysto Orders: Orders AMB Cystoscopy Today C67.9 - Malignant neoplasm of bladder, unspecified, N13.8 - Other obstructive and reflux uropathy, N40.1 - Benign prostatic hyperplasia with lower urinary tract symptoms AMB Urinalysis Automated Today Z13.9 - Encounter for screening, unspecified Patient Instructions: Imaging studies, laboratory and physical exam results were discussed and reviewed in detail. No major barriers to patient understanding were identified. An opportunity to ask questions regarding the treatment plan was provided. All questions were answered. The patient expressed understanding and agreement with the above treatment plan. The patient is aware they should contact our office by phone for worsening of their current condition or the appearance of new urologic symptoms. Compliance is encouraged with any medications and followup testing that is ordered. It is a privilege to participate in the urologic care of your patient. If you have any questions or concerns regarding treatment for the above conditions, or other urologic issues, please do not hesitate to contact me. The office telephone contact is [phone]. This note is constructed using voice recognition software. While every effort has been made to ensure accuracy makeup artistry instructor errors may have been included. Yours sincerely, Dr Jf Mercedes MD, [facility] - Urology Providers of Expert, Compassionate Care for the Genitourinary System Coding Level of Care Code Est Pt Level 3 (12298) Diagnoses Bladder cancer C67.9 BPH w urinary obs/LUTS N40.1; N13.8 CPT Codes Cystoscopy - CPT: [id number]-[id number] ([id number])
== END 2023-10-28 10:04 | disposition home or self-care (01) ==
PROVIDERS: PCP Physician Assistant Medical; Visit Provider Urology
DX: C67.9 Malignant neoplasm of bladder, unspecified (principal); N40.1 Benign prostatic hyperplasia with lower urinary tract symptoms; N13.8 Other obstructive and reflux uropathy; Z13.9 Encounter for screening, unspecified
CPT/HCPCS: 52000; 99213

== ENCOUNTER → 2023-10-28 09:06 | Outpatient (BNVA) | payer MEDICARE, SELFPAY | PROVIDERS: PCP Physician Assistant Medical; Visit Provider Urology | DX: N40.1 Benign prostatic hyperplasia with lower urinary tract symptoms (principal); N13.8 Other obstructive and reflux uropathy; C67.9 Malignant neoplasm of bladder, unspecified | CPT/HCPCS: 52000; 81003; 99212 ==